=== PATIENT | female | born 1965 | race Caucasian/White ===

== ENCOUNTER 2017-09-09 11:47 | Emergency (ER) | payer OTHER ==
[2017-09-09 12:41] VITALS: BP 118/64; PULSE 84; BMI 53.6
--- NOTE | 2017-09-09 12:41 | PDOC ---
History of Present Illness - General Chief Complaint: Psychiatric Stated Complaint: ANXIETY Time Seen by Provider: 09/09/17 11:58 History Source: Patient Exam Limitations: No Limitations - History of Present Illness Initial Comments: 09/09/17 12:36 52y F hx of anxiety, presents with possible panic attack. The pt states her dog was sick today and [facility], she was already anxious because of that. on the way to the hospital, she started feeling very shaky, feeling sob, lightheaded, feeling tingling in her extremities. She got to the hospital, handed off her dog and EMS was called. The pt states she started feeling better in the ambulance. She is currently asypmtmatic and feels fine. - she denies any chest pain, cough, hemoptysis, leg swelling, headache, abd pain, back pain. Review of Systems - Review of Systems Able to Perform ROS?: Yes Comments:: 09/09/17 12:38 Constitutional - no reported Fever, Chills, HEENT: no reported vision changes, sore throat Respiratory: +sob, no reported cough, hemoptysis Cardiac: +light headedness, no reported chest pain, palpitations, leg swelling Abd/GI: no reported abd pain, nausea, vomiting, blood per rectum, melena, diarrhea : no reported dysuria, frequency, discharge Musculskelatal - no reported back pain, joint swelling skin - no reported bruising, erythema, rash neurological: +tingling, no reported headache, numbness, focal weakness, ataxia , hematologic: no reported anemia, easy bruising, easy bleeding *Physical Exam - Physical Exam Comments: 09/09/17 12:39 GENERAL: The patient is awake, alert, and fully oriented, Nontoxic - in no acute distress. HEAD: Normocephalic, atraumatic. EYES: extraocular movements intact, sclera anicteric, conjunctiva clear. ENT: Normal voice, Moist mucous membranes. NECK: Normal range of motion, supple LUNGS: Breath sounds equal, clear to auscultation bilaterally. No wheezes, no rhonchi, no rales. HEART: Regular rate and rhythm, normal S1 and S2 without murmur, rub or gallop. ABDOMEN: Soft, nontender, normoactive bowel sounds. No guarding, no rebound. . No CVA tenderness EXTREMITIES: Normal range of motion, no edema. No clubbing or cyanosis. No cords, erythema, or tenderness. NEUROLOGICAL: No facial assymetry, Normal speech, PSYCH: Normal mood, normal affect. SKIN: Warm, Dry, normal turgor, Heart Score/ECG Review - ECG Impressions Comment:: 09/09/17 12:39 Twelve-lead EKG was performed and reviewed by me. There is normal sinus rhythm with a normal rate. Rate of 81 The axis is normal. The intervals are normal. There is normal R wave progression There are no ST or T wave abnormalities. Medical Decision Making - Medical Decision Making 09/09/17 12:39 Based on the patient's constellation of symptoms suspect this is a panic attack and EKG was obtained which showed a normal sinus rhythm. The patient is currently asymptomatic, well-appearing, vital signs are normal. Patient is requesting to go back to the [facility] to attend to her dog. We'll discharge patient to follow up with a primary care doctor Return precautions were discussed I discussed the physical exam findings, ancillary test results and final diagnoses with the patient. I answered all of the patient's questions. The patient was satisfied with the care received and felt comfortable with the discharge plan and treatment plan. The patient will call their primary care physician within 24 hours to arrange follow-up and will return to the Emergency Department with any new, persistent or worsening symptoms. *DC/Admit/Observation/Transfer Diagnosis at time of Disposition: Panic attack - Discharge Dispostion Disposition: HOME Condition at time of disposition: Improved Admit: No - Referrals Referrals: [facility] [Provider Group] - Patient Instructions Printed Discharge Instructions: DI for Panic Disorder Additional Instructions: Return to the emergency department immediately with ANY new, persistent or worsening symptoms including any chest pain, further shortness of breath, or any other concerns. You MUST call and follow up with your doctor tomorrow for further evaluation of your symptoms. Results were discussed with you. Please make sure your doctor reviews the results of your emergency evaluation. Print Language: TRINIDADIAN
[2017-09-09 13:11] VITALS: TEMP 98.1
--- NOTE | 2017-09-10 08:37 | EKG ---
Test Reason : Blood Pressure : / mmHG Vent. Rate : 081 BPM Atrial Rate : 081 BPM P-R Int : 192 ms QRS Dur : 080 ms QT Int : 360 ms P-R-T Axes : 048 044 042 degrees QTc Int : 418 ms NORMAL SINUS RHYTHM WITH SINUS ARRHYTHMIA POSSIBLE LEFT ATRIAL ENLARGEMENT BORDERLINE ECG NO PREVIOUS ECGS AVAILABLE Confirmed by BUFFY KAUR, FRIEDA ([id number]) on 09/10/2017 8:37:28 AM Referred By: Confirmed By:FRIEDA BAER MD
== END 2017-09-09 13:05 | disposition home or self-care (01) ==
LOC: JER 11:47
DX: F41.0 Panic disorder [episodic paroxysmal anxiety] (principal)
CPT/HCPCS: 93005; 93010; 99282-25